=== PATIENT | female | born 1980 | race African-American/Black ===

== ENCOUNTER 2018-02-14 15:23 | Inpatient (IN) ==
[2018-02-14] MEDS ORDERED: TERBUTALINE 1 MG/1 ML VIAL SUBCUT PRN (15:58)
[2018-02-14] MEDS ORDERED: ONDANSETRON 4 MG/2 ML VIAL IV PRN (15:58)
[2018-02-14] MEDS ORDERED: BUTORPHANOL 2 MG/ML VIAL IV PRN (15:58)
[2018-02-14] MEDS ORDERED: OXYTOCIN/LR 20 UNIT/1,000 ML BAG IV SCH (16:00)
[2018-02-14] MEDS ORDERED: LACTATED RINGERS 1,000 ML IV ONE (16:01)
[2018-02-14] MEDS ORDERED: LACTATED RINGERS 250 ML IV PRN (16:01)
[2018-02-14] MEDS ORDERED: CITRIC ACID/SODIUM CITRATE 30 ML UDCUP PO ONE (16:01)
[2018-02-14] MEDS ORDERED: FAMOTIDINE 20 MG/2 ML VIAL IV ONE (16:01)
[2018-02-14] MEDS ORDERED: PROMETHAZINE 25 MG/1 ML VIAL IM ONE (16:01)
[2018-02-14] MEDS ORDERED: diphenhydrAMINE 50 MG/1 ML VIAL IV PRN (16:01)
[2018-02-14] MEDS ORDERED: ePHEDrine 50 MG/ML AMP IV PRN (16:01)
[2018-02-14] MEDS ORDERED: hydrOXYzine HCL 25 MG/1 ML VIAL IM PRN (16:01)
[2018-02-14 16:22] LABS: Basophils % 0.1 % (0.0-0.8); Eosinophils % 0.5 % (0.00-10.9); Hematocrit 27.2 VOL% (35.7-47.0); Hemoglobin 8.6 GM/DL (12.0-16.0); Immature Granulocytes % 0.5 %; Immature Granulocytes Absolute 0.04 #; Lymphocytes # 1.3 10*3/uL (1.4-4.0); Lymphocytes % 16.6 % (21.3-54.2); Mean Corpuscular HGB Conc 31.6 GM/DL (32-36); Mean Corpuscular Hemoglobin 29 PG (27-34); Mean Platelet Volume 10.2 FL (9.6-12.0); Monocytes # 0.7 10*3/uL (0.11-0.8); Monocytes % 9.1 % (1.7-12.7); Neutrophils # 5.5 10*3/uL (1.4-7.4); Neutrophils % 73.2 % (38.7-73.9); Platelet Count 212 T/CUMM (130-400); Red Blood Count 2.99 MC/CUMM (3.8-5.5); Red Cell Distribution Width 15.3 % (9.3-17.3); White Blood Count 7.5 T/CUMM (4-12)
[2018-02-14 16:44] LABS: Alanine Aminotransferase 11 U/L (13-56); Albumin 2.9 G/DL (3.4-5.0); Alkaline Phosphatase 131 U/L (45-117); Aspartate Amino Transferase 16 U/L (0-37); Bilirubin,Total < 0.39 MG/DL (0.2-1.0); Blood Urea Nitrogen 10 MG/DL (7-18); Glucose 79 MG/DL (74-106); Osmolality,Calculated 272.7 MOS/KG (273-304); Potassium 3.4 MMOL/L (3.5-5.1); Sodium 138 MMOL/L (136-145); Total Protein 6.7 G/DL (6.4-8.3)
[2018-02-14] MEDS: LACTATED RINGERS 1,000 ML IV SCH ×2 (17:23→22:55)
[2018-02-14] MEDS ORDERED: miSOPROStol 200 MCG TABLET ONE (18:02)
[2018-02-14 18:59] LABS: Apearance,Urine CLEAR (Clear); Bilirubin,Urine Negative (Negative); Blood, Urine Negative (Negative); Glucose,Urine (UA) Negative (Negative); Ketones,Urine Negative (Negative); Mucus,Urine Occasional /LPF (Occasional); Nitrite,Urine Negative (Negative); Protein,Urine Negative; RBC,Urine <1 /HPF (0-4); Urine Color Straw (Yellow); Urine Specific Gravity 1.009 (1.001-1.035); Urine Urobilinogen < 2.0 EU/DL (0.2-1.0); WBC,Urine <1 /HPF (0-6)
[2018-02-14] MEDS: IBUPROFEN 800 MG TABLET PO PRN (20:53)
[2018-02-14] MEDS: fentaNYL 2 MCG/ROPIV 0.2% EPID 150 ML EPIDURAL SCH (22:55)
[2018-02-15] MEDS: LACTATED RINGERS 1,000 ML IV SCH ×4 (00:53→09:11)
[2018-02-15] MEDS: IBUPROFEN 800 MG TABLET PO PRN ×2 (05:15→18:11)
[2018-02-15 05:34] LABS: Basophils % 0.2 % (0.0-0.8); Eosinophils # 0.1 10*3/uL (0.0-0.87); Eosinophils % 0.8 % (0.00-10.9); Hematocrit 26.4 VOL% (35.7-47.0); Hemoglobin 8.7 GM/DL (12.0-16.0); Immature Granulocytes % 0.3 %; Immature Granulocytes Absolute 0.02 #; Lymphocytes # 1.3 10*3/uL (1.4-4.0); Lymphocytes % 20.8 % (21.3-54.2); Mean Corpuscular Hemoglobin 29 PG (27-34); Mean Corpuscular Volume 88.6 FL (87-102); Mean Platelet Volume 10.4 FL (9.6-12.0); Monocytes # 0.7 10*3/uL (0.11-0.8); Monocytes % 10.8 % (1.7-12.7); Neutrophils # 4.2 10*3/uL (1.4-7.4); Neutrophils % 67.1 % (38.7-73.9); Platelet Count 191 T/CUMM (130-400); Red Blood Count 2.98 MC/CUMM (3.8-5.5); Red Cell Distribution Width 15.1 % (9.3-17.3); White Blood Count 6.2 T/CUMM (4-12)
[2018-02-15] MEDS: FERROUS SULFATE 325 MG TABLET PO SCH ×2 (09:01→20:39)
[2018-02-15] MEDS: fentaNYL 2 MCG/ROPIV 0.2% EPID 150 ML EPIDURAL SCH (09:10)
[2018-02-16 07:59] VITALS: BP 127/70
[2018-02-16] MEDS: FERROUS SULFATE 325 MG TABLET PO SCH (08:29)
== END 2018-02-16 10:05 | disposition home or self-care (01) | DRG 560 ==
LOC: N.LDOUT 15:23 → N.LD 15:26 → N.OB 21:03
PROVIDERS: ADMIT Specialist; ATTEND Specialist

== ENCOUNTER 2019-05-20 05:19 | Inpatient (IN) ==
[2019-05-20] MEDS ORDERED: BUTORPHANOL 2 MG/ML VIAL IV PRN (05:34)
[2019-05-20] MEDS ORDERED: LACTATED RINGERS 500 ML IV PRN (05:34)
[2019-05-20 06:10] LABS: Eosinophils % 0.7 % (0.00-10.9); Hematocrit 28.3 VOL% (35.7-47.0); Hemoglobin 8.9 GM/DL (12.0-16.0); Immature Granulocytes % 0.5 %; Immature Granulocytes Absolute 0.03 #; Lymphocytes # 1.1 10*3/uL (1.4-4.0); Lymphocytes % 18.5 % (21.3-54.2); Mean Corpuscular HGB Conc 31.4 GM/DL (32-36); Mean Corpuscular Volume 89.8 FL (87-102); Mean Platelet Volume 10.5 FL (9.6-12.0); Monocytes % 10.3 % (1.7-12.7); Platelet Count 168 T/CUMM (130-400); Red Blood Count 3.15 MC/CUMM (3.8-5.5); Red Cell Distribution Width 15.7 % (9.3-17.3)
[2019-05-20] MEDS: OXYTOCIN/LR 20 UNIT/1,000 ML BAG IV SCH ×2 (07:23→18:20)
[2019-05-20] MEDS: AMPICILLIN INJ 2,000 MG in SODIUM CHLORIDE 0.9% 100 ML IV SCH ×3 (07:23→21:44)
[2019-05-20] MEDS ORDERED: FAMOTIDINE 20 MG/2 ML VIAL IV ONE (08:24)
[2019-05-20] MEDS ORDERED: ePHEDrine 50 MG/ML AMP IV PRN (08:24)
[2019-05-20] MEDS ORDERED: ONDANSETRON 4 MG/2 ML VIAL IV ONE (08:24)
[2019-05-20] MEDS ORDERED: diphenhydrAMINE 50 MG/1 ML VIAL IV PRN ×2 (08:24)
[2019-05-20] MEDS ORDERED: CITRIC ACID/SODIUM CITRATE 30 ML UDCUP PO ONE (08:24)
[2019-05-20] MEDS ORDERED: PROMETHAZINE 25 MG/1 ML VIAL IM ONE (08:24)
[2019-05-20] MEDS ORDERED: NALOXONE 0.4 MG/ML VIAL IV PRN (08:24)
[2019-05-20] MEDS ORDERED: LACTATED RINGERS 1,000 ML IV ONE (08:24)
[2019-05-20] MEDS ORDERED: hydrOXYzine HCL 25 MG/1 ML VIAL IM PRN (08:24)
[2019-05-20] MEDS ORDERED: fentaNYL 2 MCG/ROPIV 0.2% EPID 100 ML EPIDURAL SCH (08:30)
[2019-05-20] MEDS: ONDANSETRON 4 MG/2 ML VIAL IV PRN ×2 (09:14→18:48)
[2019-05-20] MEDS: LACTATED RINGERS 1,000 ML IV SCH ×3 (10:16→22:23)
[2019-05-20 12:44] LABS: Apearance,Urine CLEAR (Clear); Glucose,Urine (UA) Negative (Negative); Ketones,Urine 25 mg/dL (Negative); Nitrite,Urine Negative (Negative); Protein,Urine Negative; Urine Color Yellow (Yellow); Urine Specific Gravity 1.015 (1.001-1.035)
[2019-05-20 12:45] LABS: Bilirubin,Urine Negative (Negative); Blood, Urine Negative (Negative); Urine Urobilinogen 0.2 EU/DL (0.2-1.0)
[2019-05-20] MEDS ORDERED: DIPH/TET/ACEL PERT BOOSTER VACCINE 0.5 ML VIAL IM ONE (19:51)
[2019-05-20] MEDS ORDERED: RHO(D) IMMUNE GLOBULIN 300 MCG SYRINGE IM ONE (19:51)
[2019-05-20] MEDS ORDERED: HYDROCORTISONE 2.5% RECTAL CREAM 30 GM TUBE TOP PRN (19:51)
[2019-05-20] MEDS ORDERED: BENZOCAINE 20%/MENTHOL 0.5% SPRAY 56 GM CAN TOP PRN (19:51)
[2019-05-20] MEDS ORDERED: LANOLIN 50% CREAM 0.3 OZ TUBE TOP PRN (19:51)
[2019-05-20] MEDS ORDERED: BISACODYL 10 MG SUPP RECTAL PRN (19:51)
[2019-05-20] MEDS ORDERED: ACETAMINOPHEN 325 MG TABLET PO PRN (19:51)
[2019-05-20] MEDS ORDERED: WITCH HAZEL PADS 100/JAR TOP PRN (19:51)
[2019-05-20] MEDS ORDERED: MEASLES/MUMPS/RUBELLA VACCINE 0.5 ML VIAL SUBCUT ONE (19:51)
[2019-05-20] MEDS ORDERED: OXYTOCIN/LR 20 UNIT/1,000 ML BAG IV ONE (19:51)
[2019-05-20] MEDS ORDERED: PROMETHAZINE 25 MG/1 ML VIAL ONE (20:01)
[2019-05-20] MEDS: IBUPROFEN 800 MG TABLET PO PRN (20:07)
[2019-05-20] MEDS: oxyCODONE/ACETAMINOPHEN 5-325 MG TABLET PO PRN (20:54)
[2019-05-20 22:20] LABS: HIV Antigen/Antibody Result Nonreactive (Nonreactive); Hepatitis B Surface Ag Quant < 0.10 Index; Hepatitis B Surface Ag Result Negative (Negative); Rubella Antibody IgG 69.4 IU/ML
[2019-05-21] MEDS: DOCUSATE SODIUM 100 MG CAPSULE PO SCH ×3 (00:10→21:25)
[2019-05-21] MEDS: IBUPROFEN 800 MG TABLET PO PRN ×3 (04:45→20:25)
[2019-05-21] MEDS: AMPICILLIN INJ 2,000 MG in SODIUM CHLORIDE 0.9% 100 ML IV SCH (05:08)
[2019-05-21] MEDS: oxyCODONE/ACETAMINOPHEN 5-325 MG TABLET PO PRN ×3 (05:57→22:28)
[2019-05-21 06:00] LABS: Basophils % 0.2 % (0.0-0.8); Eosinophils % 0.5 % (0.00-10.9); Hematocrit 25.4 VOL% (35.7-47.0); Hemoglobin 7.9 GM/DL (12.0-16.0); Immature Granulocytes % 0.3 %; Immature Granulocytes Absolute 0.02 #; Lymphocytes # 1.3 10*3/uL (1.4-4.0); Mean Corpuscular HGB Conc 31.1 GM/DL (32-36); Mean Corpuscular Volume 90.7 FL (87-102); Mean Platelet Volume 11.2 FL (9.6-12.0); Monocytes % 12.6 % (1.7-12.7); Neutrophils % 67.4 % (38.7-73.9); Platelet Count 153 T/CUMM (130-400); Red Cell Distribution Width 15.6 % (9.3-17.3); White Blood Count 6.6 T/CUMM (4-12)
[2019-05-21] MEDS: FERROUS SULFATE 325 MG TABLET PO SCH ×3 (09:24→21:26)
[2019-05-22 07:15] VITALS: BP 140/88
[2019-05-22] MEDS: oxyCODONE/ACETAMINOPHEN 5-325 MG TABLET PO PRN (07:32)
[2019-05-22] MEDS: IBUPROFEN 800 MG TABLET PO PRN (07:32)
[2019-05-22] MEDS: DOCUSATE SODIUM 100 MG CAPSULE PO SCH (08:40)
[2019-05-22] MEDS: FERROUS SULFATE 325 MG TABLET PO SCH (08:40)
== END 2019-05-22 12:15 | disposition home health service (06) | DRG 560 ==
LOC: N.LDOUT 05:19 → N.LD 05:22 → N.OB 20:40
PROVIDERS: ADMIT Obstetrics & Gynecology; ATTEND Obstetrics & Gynecology

== ENCOUNTER 2020-04-16 07:48 | Inpatient (IN) ==
[2020-04-16] MEDS ORDERED: AMPICILLIN 2,000 MG VIAL ONE (08:11)
[2020-04-16] MEDS ORDERED: OXYTOCIN/LR 20 UNIT/1,000 ML BAG IV ONE ×4 (08:11→08:50)
[2020-04-16] MEDS ORDERED: SODIUM CHLORIDE 0.9% 100 ML IV ONE (08:12)
[2020-04-16] MEDS ORDERED: AMPICILLIN INJ 2,000 MG in SODIUM CHLORIDE 0.9% 100 ML IV ONE (08:16)
[2020-04-16] MEDS ORDERED: LACTATED RINGERS 1,000 ML IV ONE (08:17)
[2020-04-16] MEDS ORDERED: CARBOPROST TROMETHAMINE 250 MCG/ML AMP IM ONE (08:19)
[2020-04-16] MEDS ORDERED: miSOPROStoL 200 MCG TABLET ONE (08:19)
[2020-04-16] MEDS ORDERED: TRANEXAMIC ACID 1,000 MG/10 ML VIAL ONE (08:19)
[2020-04-16] MEDS ORDERED: METHYLERGONOVINE 0.2 MG/1 ML AMP ONE (08:19)
[2020-04-16] MEDS ORDERED: LIDOCAINE 1% 50 ML VIAL ONE (08:20)
[2020-04-16] MEDS ORDERED: BUTORPHANOL 1 MG/ML VIAL IV PRN (08:25)
[2020-04-16] MEDS ORDERED: BUTORPHANOL 2 MG/ML VIAL IV PRN (08:25)
[2020-04-16] MEDS ORDERED: ONDANSETRON 4 MG/2 ML VIAL IV PRN ×2 (08:25→08:50)
[2020-04-16] MEDS ORDERED: LACTATED RINGERS 1,000 ML IV SCH ×2 (08:30)
[2020-04-16] MEDS ORDERED: KETOROLAC 30 MG/1 ML VIAL IV ONE (08:36)
[2020-04-16 08:49] LABS: Basophils % 0.1 % (0.0-0.8); Eosinophils % 0.2 % (0.00-10.9); Hematocrit 29.8 VOL% (35.7-47.0); Hemoglobin 9.3 GM/DL (12.0-16.0); Immature Granulocytes % 0.5 %; Immature Granulocytes Absolute 0.05 #; Lymphocytes # 0.9 10*3/uL (1.4-4.0); Lymphocytes % 7.8 % (21.3-54.2); Mean Corpuscular HGB Conc 31.2 GM/DL (32-36); Mean Corpuscular Volume 93.4 FL (87-102); Mean Platelet Volume 10.3 FL (9.6-12.0); Monocytes % 7.9 % (1.7-12.7); Neutrophils % 83.5 % (38.7-73.9); Platelet Count 169 T/CUMM (130-400); Red Blood Count 3.19 MC/CUMM (3.8-5.5); Red Cell Distribution Width 14.5 % (9.3-17.3); White Blood Count 11.1 T/CUMM (4-12)
[2020-04-16] MEDS ORDERED: LANOLIN 50% CREAM 0.3 OZ TUBE TOP PRN (08:50)
[2020-04-16] MEDS ORDERED: BENZOCAINE 20%/MENTHOL 0.5% SPRAY 56 GM CAN TOP PRN (08:50)
[2020-04-16] MEDS ORDERED: WITCH HAZEL PADS 100/JAR TOP PRN (08:50)
[2020-04-16] MEDS ORDERED: BISACODYL 10 MG SUPP RECTAL PRN (08:50)
[2020-04-16] MEDS ORDERED: oxyCODONE/ACETAMINOPHEN 5-325 MG TABLET PO PRN ×2 (08:50)
[2020-04-16] MEDS ORDERED: DIPH/TET/ACEL PERT BOOSTER VACCINE 0.5 ML VIAL IM ONE (08:50)
[2020-04-16] MEDS ORDERED: MEASLES/MUMPS/RUBELLA VACCINE 0.5 ML VIAL SUBCUT ONE (08:50)
[2020-04-16] MEDS ORDERED: HYDROCORTISONE 2.5% RECTAL CREAM 30 GM TUBE TOP PRN (08:50)
[2020-04-16] MEDS ORDERED: RHO(D) IMMUNE GLOBULIN 300 MCG SYRINGE IM ONE (08:50)
[2020-04-16] MEDS ORDERED: ACETAMINOPHEN 325 MG TABLET PO PRN (08:50)
[2020-04-16 08:51] LABS: Cord Venous Blood HCO3 22.3 MMOL/L; Cord Venous Blood PCO2 37.1 MMHG; Cord Venous Blood PO2 64.9
[2020-04-16 08:52] LABS: Cord Arterial Blood HCO3 21.1 MMOL/L
[2020-04-16 08:57] LABS: Apearance,Urine Slightly Hazy (Clear); Bilirubin,Urine Negative (Negative); Blood, Urine Moderate mg/dL (Negative); Glucose,Urine (UA) Negative (Negative); Ketones,Urine Negative (Negative); Mucus,Urine Few /LPF (Occasional); Nitrite,Urine Negative (Negative); Protein,Urine 30 MG/DL; RBC,Urine 7 /HPF (0-4); Squamous Epithelial Cell,Urine Occasional /HPF (0-10); Urine Color Yellow (Yellow); Urine Specific Gravity 1.023 (1.001-1.035); Urine Urobilinogen < 2.0 EU/DL (0.2-1.0); WBC,Urine <1 /HPF (0-6)
[2020-04-16 09:19] LABS: Alanine Aminotransferase 24 U/L (13-56); Albumin 2.6 G/DL (3.4-5.0); Alkaline Phosphatase 107 U/L (45-117); Aspartate Amino Transferase 32 U/L (0-37); Bilirubin,Total < 0.39 MG/DL (0.2-1.0); Blood Urea Nitrogen 9 MG/DL (7-18); Calcium 7.9 MG/DL (8.5-10.1); Estimated Glom Filtration Rate 138 ML/MIN; Glucose 92 MG/DL (74-106); Osmolality,Calculated 271.8 MOS/KG (273-304); Total Protein 6.9 G/DL (6.4-8.3); Uric Acid 4.6 MG/DL (2.6-6.0)
[2020-04-16] MEDS: IBUPROFEN 800 MG TABLET PO PRN ×3 (10:34→20:49)
[2020-04-16] MEDS: DOCUSATE SODIUM 100 MG CAPSULE PO SCH (13:38)
[2020-04-17] MEDS: DOCUSATE SODIUM 100 MG CAPSULE PO SCH ×2 (04:40→09:07)
[2020-04-17 05:40] LABS: Basophils % 0.2 % (0.0-0.8); Eosinophils % 0.3 % (0.00-10.9); Hematocrit 25.6 VOL% (35.7-47.0); Hemoglobin 8.2 GM/DL (12.0-16.0); Immature Granulocytes % 0.7 %; Immature Granulocytes Absolute 0.07 #; Lymphocytes # 1.8 10*3/uL (1.4-4.0); Lymphocytes % 17.2 % (21.3-54.2); Mean Corpuscular Volume 91.8 FL (87-102); Mean Platelet Volume 10.1 FL (9.6-12.0); Monocytes % 8.6 % (1.7-12.7); Platelet Count 154 T/CUMM (130-400); Red Blood Count 2.79 MC/CUMM (3.8-5.5); Red Cell Distribution Width 14.4 % (9.3-17.3); White Blood Count 10.6 T/CUMM (4-12)
[2020-04-17 07:38] VITALS: BP 140/95
[2020-04-17] MEDS: IBUPROFEN 800 MG TABLET PO PRN (09:06)
== END 2020-04-17 11:46 | disposition home or self-care (01) | DRG 560 ==
LOC: N.LDOUT 07:48 → N.LD 07:51
PROVIDERS: ADMIT Obstetrics & Gynecology; ATTEND Obstetrics & Gynecology